=== PATIENT | male | born 1990 | race Caucasian/White ===

== ENCOUNTER 2018-02-03 18:06 | Emergency (ER) | payer BC, OTHER ==
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
== END 2018-02-03 20:00 | disposition home or self-care (01) ==
LOC: CC.ED 18:06
DX: S06.0X0A Concussion without loss of consciousness, initial encounter (principal); S00.03XA Contusion of scalp, initial encounter; I10 Essential (primary) hypertension; W18.00XA Striking against unspecified object with subsequent fall, initial encounter; Y93.I9 Activity, other involving external motion; Z79.899 Other long term (current) drug therapy
CPT/HCPCS: 70450; 99283

== ENCOUNTER 2024-11-09 03:06 | Emergency (ER) | payer OTHER, BC ==
[2024-11-09] MEDS ORDERED: Sodium Chloride 0.9% 10 ML Syringe FLUSH PRN (03:20)
[2024-11-09 03:26] LABS: BASOPHILS ABSOLUTE AUTO 0.06 10^3/uL (0.00-0.50); BASOPHILS PERCENT AUTO 0.7 % (0-1); EOSINOPHILS ABSOLUTE AUTO 0.27 10^3/uL (0.00-1.50); EOSINOPHILS PERCENT AUTO 3.1 % (0-6); HEMATOCRIT 45.9 % (42.0-52.0); HEMOGLOBIN 16.6 g/dL (14.0-18.0); IMMATURE GRAN ABSOLUTE AUTO 0.04 10^3/uL (0.00-0.49); IMMATURE GRAN PERCENT AUTO 0.5 % (0.0-4.9); LYMPHOCYTES ABSOLUTE AUTO 2.07 10^3/uL (0.60-5.00); MEAN CORPUSCULAR HEMOGLOBIN 32.3 pg (27.0-32.0); MEAN CORPUSCULAR HGB CONC 36.2 g/dL (32.0-36.0); MEAN CORPUSCULAR VOLUME 89.3 fL (83.0-97.0); MONOCYTES ABSOLUTE AUTO 0.82 10^3/uL (0.00-1.50); MONOCYTES PERCENT AUTO 9.5 % (0-10); NEUTROPHILS ABSOLUTE AUTO 5.35 x10^3/uL (1.80-8.00); NEUTROPHILS PERCENT AUTO 62.2 % (41-71); PLATELET COUNT,PLT 205 10^3/uL (150-400); RED BLOOD CELL COUNT 5.14 x10^6/uL (4.50-6.00); WHITE BLOOD CELL COUNT,WBC 8.6 10^3/uL (4.0-11.0)
[2024-11-09] MEDS: fentaNYL 100 MCG/2 ML SDV IV ONE (03:40)
[2024-11-09 03:49] LABS: ALANINE AMINOTRANSFERASE,ALT 72 U/L (12-78); ALBUMIN 4.1 g/dL (3.4-5.0); ALKALINE PHOSPHATASE 84 U/L (46-116); ASPARTATE AMNIOTRANSFERASE,AST 40 U/L (15-37); BILIRUBIN TOTAL 0.4 mg/dL (0.0-1.0); BLOOD UREA NITROGEN,BUN 16 mg/dL (7-18); CALCIUM 8.6 mg/dL (8.4-10.1); CARBON DIOXIDE,CO2 28 mmol/L (21-32); CHLORIDE,CL 98 mEq/L (98-106); GLUCOSE RANDOM 107 mg/dL (75-99); POTASSIUM,K 3.7 mEq/L (3.5-5.0); PROTEIN TOTAL,TP 7.3 g/dL (6.4-8.2); SODIUM,NA 140 mEq/L (136-145)
[2024-11-09 03:51] LABS: C-REACTIVE PROTEIN < 0.50 mg/dL (<=0.50); ESTIMATED GFR 102 mL/min (>=60); ETHANOL BLOOD MEDICAL 323 mg/dL (0-3)
[2024-11-09 03:54] LABS: APPEARANCE,URINE CLEAR (CLEAR); BILIRUBIN,URINE NEGATIVE (NEGATIVE); COLOR,URINE YELLOW (YELLOW); GLUCOSE,URINE NEGATIVE (NEGATIVE); KETONES,URINE NEGATIVE (NEGATIVE); LEUKOCYTE ESTERASE,URINE NEGATIVE (NEGATIVE); NITRITE,URINE NEGATIVE (NEGATIVE); OCCULT BLOOD,URINE NEGATIVE (NEGATIVE); PH,URINE 5.5 (4.5-8.0); PROTEIN,URINE NEGATIVE (NEGATIVE); UROBILINOGEN,URINE 0.2 EU/dL (0.2-1.0)
[2024-11-09] MEDS: Iopamidol 755 Mg/ML 100 ML Bottle IVPUSH ONE (03:54)
[2024-11-09] MEDS: fentaNYL 50 MCG/ML SDV IVPUSH ONE (04:15)
[2024-11-09] MEDS: Diphtheria,Pertussis(Acell),Tetanus Vaccine 0.5 ML Syringe IM ONE (04:35)
[2024-11-09] MEDS: Take Home: Acetaminophen/HYDROcodone 325-5 MG, 2 Tab Pack PO ONE (05:15)
[2024-11-09 05:47] VITALS: BP 140/67; PULSE 110
== END 2024-11-09 05:40 | disposition home or self-care (01) ==
LOC: CC.ED 03:06
DX: S42.022A Displaced fracture of shaft of left clavicle, initial encounter for closed fracture (principal); F10.120 Alcohol abuse with intoxication, uncomplicated; I10 Essential (primary) hypertension; Z79.899 Other long term (current) drug therapy; V86.99XA Unspecified occupant of other special all-terrain or other off-road motor vehicle injured in nontraffic accident, initial encounter; Z23 Encounter for immunization
CPT/HCPCS: 36415; 70450; 71260; 72125; 74177; 80053; 80307; 81003; 85025; 86140; 90471; 90715; 96374; 96376; 99284-25; A9270-GY; J3010; Q9967